=== PATIENT | female | born 1990 | race Native Hawaiian/Other Pacific Islander ===

== ENCOUNTER 2020-07-12 02:05 | Emergency (ER) | payer OTHER ==
[~2020-07-12] VITALS: Ht 165.1 cm; Wt 53.1 kg
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
--- NOTE | 2020-07-12 02:38 | NUR ---
DR ESPINO AT BED SIDE
--- NOTE | 2020-07-12 03:42 | NUR ---
PT WAS TAKEN FOR CT
--- NOTE | 2020-07-12 04:00 | NUR ---
AT BED SIDE FOR DISCHARGE INSTRUCTIONS
--- NOTE | 2020-07-12 04:07 | NUR ---
Patient discharged to home in stable condition. Written and verbal after care instructions given. Patient verbalizes understanding of instruction.
[2020-07-12 04:08] VITALS: BP 108/63
== END 2020-07-12 04:08 | disposition home or self-care (01) ==
LOC: ER 02:11
DX: S00.83XA Contusion of other part of head, initial encounter (principal); S10.83XA Contusion of other specified part of neck, initial encounter; R42 Dizziness and giddiness; Y04.8XXA Assault by other bodily force, initial encounter; Y93.89 Activity, other specified; Y92.89 Other specified places as the place of occurrence of the external cause; Y99.8 Other external cause status
CPT/HCPCS: 70450-TC; 72125-TC; 84703-TC